=== PATIENT | male | born 1965 | race Caucasian/White ===

== ENCOUNTER 2020-05-15 07:38 | Emergency (ER) | payer BC ==
[~2020-05-15] VITALS: Ht 175.3 cm; Wt 108.0 kg
[~2020-05-15 07:38] MED LIST: ALPR.5 PO; AMLO5 PO; AMPDEX15CR PO; ATOR40TA PO; BUPR150T2; DESV50 PO; FEXO180; HYDACE5 PO; LEVO750 PO; LOSHYD100 PO; MECL25 PO; NAPR550 PO; OLME20; OXYACE5T PO; ROSU10TA; TRAZ50; VENL75
[2020-05-15] MEDS ORDERED: LOSARTAN-HCTZ1 EACH PO (08:18)
[2020-05-15] MEDS ORDERED: Catapres0.2 MG PO (08:19)
[2020-05-15] MEDS ORDERED: ARIP10 PO (08:19)
[2020-05-15] MEDS ORDERED: DESV50 PO (08:20)
[2020-05-15] MEDS ORDERED: ATOR40TA PO (08:21)
[2020-05-15] MEDS ORDERED: ZYRTEC10 M1 PO (08:22)
[2020-05-15] MEDS ORDERED: MULVITA PO (08:23)
[2020-05-15] MEDS ORDERED: THERA-D2000 UNIT PO (08:23)
[2020-05-15] MEDS ORDERED: B COMPLEX FORM0.4 MG PO (08:23)
[2020-05-15] MEDS ORDERED: GLUC500 PO (08:25)
[2020-05-15] MEDS ORDERED: FISH OIL 1,2001 EAC7 PO (08:25)
[2020-05-15] MEDS ORDERED: Citrucel500 MG PO (08:26)
[2020-05-15] MEDS ORDERED: COQ1050 MG PO (08:26)
[2020-05-15] MEDS ORDERED: AMOCLA875 PO (08:48)
== END 2020-05-15 09:05 | disposition home or self-care (01) ==
LOC: ER 07:38
DX: L03.213 Periorbital cellulitis (principal); H10.9 Unspecified conjunctivitis; H11.422 Conjunctival edema, left eye; I10 Essential (primary) hypertension; E78.5 Hyperlipidemia, unspecified; Z79.899 Other long term (current) drug therapy
CPT/HCPCS: 99282; A9270

== ENCOUNTER 2020-05-16 14:36 | Emergency (ER) | payer BC ==
[~2020-05-16] VITALS: Ht 175.3 cm; Wt 108.0 kg
[~2020-05-16 14:36] MED LIST changes: +AMOCLA875 PO; +ARIP10 PO; +B COMPLEX FORM0.4 MG PO; +COQ1050 MG PO; +Catapres0.2 MG PO; +Citrucel500 MG PO; +FISH OIL 1,2001 EAC7 PO; +GLUC500 PO; +LOSARTAN-HCTZ1 EACH PO; +MULVITA PO; +THERA-D2000 UNIT PO; +ZYRTEC10 M1 PO
[2020-05-16 16:49] LABS: BASOPHILS ABSOLUTE AUTO 0.05 K/mm3 (0.00-0.23); BASOPHILS PERCENT AUTO 1 % (0-2); EOSINOPHILS ABSOLUTE AUTO 0.18 K/mm3 (0.00-0.68); EOSINOPHILS PERCENT AUTO 3 % (0-6); Hematocrit 40.1 % (37.0-53.0); IMMATURE GRAN ABSOLUTE AUTO 0.03 K/mm3 (0.00-0.10); IMMATURE GRAN PERCENT AUTO 0 % (0-1); LYMPHOCYTES ABSOLUTE AUTO 2.21 K/mm3 (0.84-5.20); LYMPHOCYTES PERCENT AUTO 32 % (21-46); MONOCYTES ABSOLUTE AUTO 0.68 K/mm3 (0.16-1.47); MONOCYTES PERCENT AUTO 10 % (4-13); Mean Corpuscular HGB 30.2 pg (26.0-34.0); Mean Corpuscular HGB Conc 34.9 g/dL (31.5-36.5); Mean Corpuscular Volume 86 fL (80-100); Mean Platelet Volume 10.9 fL (9.1-12.4); NEUTROPHILS PERCENT AUTO 55 % (41-73); Platelet Count 209 K/mm3 (150-400); RDW Standard Deviation 38.2 fL (35.1-46.3); Red Blood Cell Count 4.64 M/mm3 (4.30-5.90); White Blood Cell Count 6.95 K/mm3 (4.00-11.30)
[2020-05-16 17:03] LABS: Anion Gap 4 mmol/L (6-16); Blood Urea Nitrogen 11 mg/dL (8-24); Bun/Creatinine Ratio 13.4 (12.0-20.0); C-REACTIVE PROTEIN, EXT RANGE <0.290 mg/dL (0.000-0.300); CO2, Blood 30 mmol/L (21-32); Calcium, Blood 8.9 mg/dL (8.5-10.1); Chloride, Blood 105 mmol/L (98-108); Creatinine, Blood 0.82 mg/dL (0.60-1.20); Free Thyroxine 0.97 ng/dL (0.70-1.60); Glomerular Filtration Rate >60 (60-); Glucose, Blood 85 mg/dL (70-99); Potassium, Blood 3.5 mmol/L (3.5-5.5); Sodium, Blood 139 mmol/L (136-145)
== END 2020-05-16 17:55 | disposition home or self-care (01) ==
LOC: ER 14:36
PROVIDERS: Emergency Medicine
DX: L03.213 Periorbital cellulitis (principal); Z79.899 Other long term (current) drug therapy
CPT/HCPCS: 70481; 80048; 83520; 83615; 84439; 84443; 85025; 86038; 86140; 99284-25; Q9967

== ENCOUNTER → 2020-10-04 | Outpatient (CLI) | payer BC | END | disposition home or self-care (01) | LOC: LAB SHORT 11:40 → LAB 11:40 | DX: C44.319 Basal cell carcinoma of skin of other parts of face (principal) | CPT/HCPCS: 88305 ==

== ENCOUNTER → 2021-09-17 | Outpatient (CLI) | payer BC | END | disposition home or self-care (01) | LOC: LAB SHORT 10:54 → PLD 10:54 | DX: D22.5 Melanocytic nevi of trunk (principal) | CPT/HCPCS: 88305 ==